=== PATIENT | female | born 1935 | race Caucasian/White ===

== ENCOUNTER 2021-05-26 13:10 | Outpatient (CLI) | payer MEDICARE, OTHER ==
[2021-05-27 00:50] LABS: SARS-CoV-2 PCR by NAA Not Detected (NotDetected)
== END 2021-05-26 13:11 | disposition home or self-care (01) ==
LOC: CSHLAB 13:10
PROVIDERS: ATTEND Family Medicine
DX: Z20.822 Contact with and (suspected) exposure to COVID-19 (principal); R13.10 Dysphagia, unspecified; K44.9 Diaphragmatic hernia without obstruction or gangrene
CPT/HCPCS: U0003; U0005

== ENCOUNTER 2021-07-10 13:10 | Outpatient (CLI) | payer MEDICARE, OTHER | END 2021-07-10 13:11 | disposition home or self-care (01) | LOC: CSHRAD 13:10 | PROVIDERS: ATTEND Physician Assistant Medical | DX: R13.10 Dysphagia, unspecified (principal); K44.9 Diaphragmatic hernia without obstruction or gangrene; K22.5 Diverticulum of esophagus, acquired; K57.10 Diverticulosis of small intestine without perforation or abscess without bleeding | CPT/HCPCS: 74220 ==